=== PATIENT | male | born 2000 | race Asian ===

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

== ENCOUNTER 2019-01-27 09:25 | Emergency (ER) | payer OTHER ==
[~2019-01-27] VITALS: Ht 180.3 cm; Wt 113.6 kg
[2019-01-27 09:35] VITALS: BP 142/91
== END 2019-01-27 10:03 | disposition home or self-care (01) ==
LOC: EMS 09:26
DX: H60.92 Unspecified otitis externa, left ear (principal); R03.0 Elevated blood-pressure reading, without diagnosis of hypertension